=== PATIENT | male | born 1990 | race Caucasian/White ===

== ENCOUNTER 2018-06-10 08:05 | Emergency (ER) | payer MEDICAID, SELFPAY ==
[2018-06-10 08:09] VITALS: BP 150/97; PULSE 68; RESP 18; TEMP 36.7; O2SAT 95
--- NOTE | 2018-06-10 08:25 | W.ED.GENAD ---
Discharge Plan Disposition Patient Disposition: HOME Condition: Good Discharge Details Chief Complaint: Sorethroat Clinical Impression: Pharyngitis Primary Care Provider: ROSALIA PAINTING ED Provider: Sage Thomas Home Meds and New Rx's Prescriptions: New amoxicillin 500 mg capsule 500 mg PO TID Qty: 30 RF: 0 Continue methadone 10 MG/ML concentrate 100 mg PO DAILY RF: 0 Discharge Instructions Instructions: Pharyngitis (ED) Additional Instructions: if symptoms continue next week see your primary care provider if you have inability to swallow liquids or difficulty breathing return to the emergency department Discharge Data Discharge Physician: Sage Thomas Medical Decision Making Pt has had a sore throat for about a week, no fevers or other systemic symptoms. Denies dyspnea, difficulty swallowing liquids or stridor. Swallowing normally on exam with midline uvula, no pain over hyoid or restricted neck movemements, no findings to suggest rpa, radio division captain, epiglotitis at this time. Has mild erythema of psoterior pharynx. Will cover for bacterial pharyngitis and given return precautions Differential Diagnosis viral vs bacterial pharyngitis HPI General Mode of arrival: ambulatory. Date/Time Provider Initiated Documentation: 06/10/18 08:20. Limitations to Documentation: no limitations. Information obtained by: patient. History of Present Illness 28 year old M presents to the emergency department with the chief complaint of throat pain, described as moderate, with intensity rated at 5. Quality is described as aching, Patient reports no radiation. Patient started experiencing this week(s) (1) and it has been constant. No relieving factors improve symptom(s), No exacerbating factors reported . Patient notes no other symptoms.. Patient did receive the following treatments prior to arrival, NSAID Related Data Home Medications Medication Instructions Recorded Confirmed methadone 100 mg PO DAILY 02/12/16 06/10/18 amoxicillin 500 mg PO TID #30 cap 06/10/18 Previous Rx's Medication Instructions Recorded amoxicillin 500 mg PO TID #30 cap 06/10/18 Allergies Allergy/AdvReac Type Severity Reaction Status Date / Time venom-honey bee Allergy Unverified 06/10/18 08:16 [bee venom (honey bee)] amoxicillin AdvReac Intermediate Nausea Unverified 06/10/18 08:16 sulfamethoxazole AdvReac Unverified 06/10/18 08:16 [From Bactrim] trimethoprim [From Bactrim] AdvReac Unverified 06/10/18 08:16 General Stated Complaint: Sorethroat CHANTAL: 4 Review of Systems Review of Systems All systems reviewed & are unremarkable except as noted in HPI and below Constitutional Denies chills, Denies fever(s) and Denies weakness Eyes Denies loss of vision Cardiovascular Denies chest pain and Denies dyspnea Respiratory Denies dyspnea Gastrointestinal Denies abdominal pain Genitourinary Denies dysuria Musculoskeletal Denies joint swelling Integumentary/Breasts Denies rash Neurologic Denies loss of vision and Denies weakness Psychiatric Denies depression Endocrine Denies cold intolerance and Denies heat intolerance PFSH Social History Smoking/Tobacco Use Status: Current every day Exam Const General: no acute distress Orientation: alert HENMT Head: normal to inspection Ears: external ears normal General nose exam: external nose normal Mouth: moist mucous membranes Eyes General: appearance normal, both eyes and all related structures Neck Neck: normal visual inspection Resp Effort & Inspection: normal respiratory effort and able to speak in complete sentences Cardio Rate: regular rate Skin General skin exam: no rashes or lesions noted Neuro General: alert and oriented x3 Extrem General: normal to inspection Psych Mental Status: mental status grossly normal Course Vital Signs Temperature 36.7 C 06/10/18 08:09 Pulse 68 06/10/18 08:09 Respiratory Rate 18 06/10/18 08:09 Blood Pressure 150/97 H 06/10/18 08:09 Pulse Oximetry 95 06/10/18 08:09 Temperature 36.7 C 06/10/18 08:09 Temperature Source Skin 06/10/18 08:09 Pulse 68 06/10/18 08:09 Respiratory Rate 18 06/10/18 08:09 Respiratory Effort 06/10/18 08:14 Blood Pressure 150/97 H 06/10/18 08:09 Blood Pressure Position Sitting 06/10/18 08:09 Pulse Oximetry 95 06/10/18 08:09 Oxygen Delivery Method Room Air 06/10/18 08:09 Oxygen Flow Rate 0 06/10/18 08:09 Pain Level 8 06/10/18 08:09 Comment 06/10/18 08:09
--- NOTE | 2018-06-10 08:28 | ED.GENADUL_ITS ---
Discharge Plan Disposition Patient Disposition: HOME Condition: Good Discharge Details Chief Complaint: Sorethroat Clinical Impression: Pharyngitis Primary Care Provider: ROSALIA PAINTING ED Provider: Sage Thomas Home Meds and New Rx's Prescriptions: New amoxicillin 500 mg capsule 500 mg PO TID Qty: 30 RF: 0 Continue methadone 10 MG/ML concentrate 100 mg PO DAILY RF: 0 Discharge Instructions Instructions: Pharyngitis (ED) Additional Instructions: if symptoms continue next week see your primary care provider if you have inability to swallow liquids or difficulty breathing return to the emergency department Discharge Data Discharge Physician: Sage Thomas Medical Decision Making Pt has had a sore throat for about a week, no fevers or other systemic symptoms. Denies dyspnea, difficulty swallowing liquids or stridor. Swallowing normally on exam with midline uvula, no pain over hyoid or restricted neck movemements, no findings to suggest rpa, radio division captain, epiglotitis at this time. Has mild erythema of psoterior pharynx. Will cover for bacterial pharyngitis and given return precautions Differential Diagnosis viral vs bacterial pharyngitis HPI General Mode of arrival: ambulatory . Date/Time Provider Initiated Documentation: 06/10/18 08:20 . Limitations to Documentation: no limitations . Information obtained by: patient . History of Present Illness 28 year old M presents to the emergency department with the chief complaint of throat pain, described as moderate, with intensity rated at 5. Quality is described as aching, Patient reports no radiation. Patient started experiencing this week(s) (1) and it has been constant. No relieving factors improve symptom(s), No exacerbating factors reported . Patient notes no other symptoms.. Patient did receive the following treatments prior to arrival, NSAID Related Data Home Medications Medication Instructions Recorded Confirmed methadone 100 mg PO DAILY 02/12/16 06/10/18 amoxicillin 500 mg PO TID #30 cap 06/10/18 Previous Rx's Medication Instructions Recorded amoxicillin 500 mg PO TID #30 cap 06/10/18 Allergies Allergy/AdvReac Type Severity Reaction Status Date / Time venom-honey bee Allergy Unverified 06/10/18 08:16 [bee venom (honey bee)] amoxicillin AdvReac Intermediate Nausea Unverified 06/10/18 08:16 sulfamethoxazole AdvReac Unverified 06/10/18 08:16 [From Bactrim] trimethoprim [From Bactrim] AdvReac Unverified 06/10/18 08:16 General Stated Complaint: Sorethroat CHANTAL: 4 Review of Systems Review of Systems All systems reviewed & are unremarkable except as noted in HPI and below Constitutional Denies chills, Denies fever(s) and Denies weakness Eyes Denies loss of vision Cardiovascular Denies chest pain and Denies dyspnea Respiratory Denies dyspnea Gastrointestinal Denies abdominal pain Genitourinary Denies dysuria Musculoskeletal Denies joint swelling Integumentary/Breasts Denies rash Neurologic Denies loss of vision and Denies weakness Psychiatric Denies depression Endocrine Denies cold intolerance and Denies heat intolerance PFSH Social History Smoking/Tobacco Use Status: Current every day Exam Const General: no acute distress Orientation: alert HENMT Head: normal to inspection Ears: external ears normal General nose exam: external nose normal Mouth: moist mucous membranes Eyes General: appearance normal, both eyes and all related structures Neck Neck: normal visual inspection Resp Effort & Inspection: normal respiratory effort and able to speak in complete sentences Cardio Rate: regular rate Skin General skin exam: no rashes or lesions noted Neuro General: alert and oriented x3 Extrem General: normal to inspection Psych Mental Status: mental status grossly normal Course Vital Signs Temperature 36.7 C 06/10/18 08:09 Pulse 68 06/10/18 08:09 Respiratory Rate 18 06/10/18 08:09 Blood Pressure 150/97 H 06/10/18 08:09 Pulse Oximetry 95 06/10/18 08:09 Temperature 36.7 C 06/10/18 08:09 Temperature Source Skin 06/10/18 08:09 Pulse 68 06/10/18 08:09 Respiratory Rate 18 06/10/18 08:09 Respiratory Effort 06/10/18 08:14 Blood Pressure 150/97 H 06/10/18 08:09 Blood Pressure Position Sitting 06/10/18 08:09 Pulse Oximetry 95 06/10/18 08:09 Oxygen Delivery Method Room Air 06/10/18 08:09 Oxygen Flow Rate 0 06/10/18 08:09 Pain Level 8 06/10/18 08:09 Comment 06/10/18 08:09
== END 2018-06-10 08:41 | disposition home or self-care (01) ==
PROVIDERS: Emergency Provider Emergency Medicine; PCP Family Medicine
DX: J02.9 Acute pharyngitis, unspecified (principal); F17.210 Nicotine dependence, cigarettes, uncomplicated
CPT/HCPCS: 99283

== ENCOUNTER 2024-07-19 03:28 | Emergency (ER) | payer MEDICAID, SELFPAY ==
[2024-07-19 03:33] VITALS: BP 146/88; PULSE 127; RESP 16; TEMP 37.1; O2SAT 98
[2024-07-19] MEDS: Lidocaine 5% Patch 1 PATCH TP (03:57)
[2024-07-19] MEDS: Clindamycin 150 MG CAP, 12 CAPS/BTL 1800 MG (03:57)
--- NOTE | 2024-07-19 03:59 | ED.GENADUL_ITS ---
Discharge Plan Disposition Patient Disposition: Home Condition: Good Discharge Details Clinical Impression: Cellulitis of finger of left hand, Rib pain on left side Primary Care Provider: Jeny Seaman ED Provider: Dawson Crawley Home Meds and New Rx's Prescriptions: New clindamycin HCl 150 mg capsule 450 mg PO Q6H 9 Days Qty: 108 0RF lidocaine [Lidoderm] 5 % adhesive patch,medicated 1 patch Topical Q24H Qty: 15 0RF No Action methadone 10 MG/ML concentrate 100 mg PO DAILY Discharge Instructions Instructions: Cellulitis (Skin Infection), Adult ED Additional Instructions: At this time you do have a bacterial infection in your left arm. Please take the antibiotic as prescribed. While you have been given a powerful antibiotic, there is a chance that the infection could worsen. If you noticed increased of your red streaking, if you develop a fever, if you have worsening pain, please return immediately for reassessment. Thankfully the ultrasound does not show any evidence of abnormality for your lungs or your heart, and it is likely a bruised or very mildly rebroken rib that is causing the pain. Please take the Lidoderm patch as prescribed. If your insurance does not cover it or it is too expensive you can buy [id number] Lidoderm patches which are just 1% point lower, but still offer significant pain management. If you notice any worsening of your symptoms, or any new symptoms such as vomiting, diarrhea, fever, chills, shortness of breath, chest pain, numbness, weakness, or fainting , please return immediately to the emergency department for reevaluation. Please follow up with your primary care provider as soon as possible for reassessment and reevaluation. As always, it was a pleasure participating in your medical care today. Referrals: Jeny Seaman [Primary Care Provider] - [facility] General Date/Time Provider Initiated Documentation: 07/19/24 03:44 . HPI Narrative: 34-year-old male with a past medical history of IV drug use presents today for evaluation of left arm swelling. Patient states he recently got out of residential and then he relapsed about 48 hours ago. He injected into his left hand then over the last 24 to 36 hours is noted swelling in the left hand and streaking up the left forearm. He denies fever. He admits to mild achiness but no severe pain. No large amount of discharge or fluid. He is right-hand dominant. He does admit to a few very small sores which are weeping whitish fluid. Additionally he states that he has also had some mild left-sided rib pain. He broke his ribs a few weeks ago, the in the last 24 to 48 hours he slipped and fell and hit left ribs on a tree. He has had some mild achiness there. Worse when he takes a deep breath or palpates the area. He has taken occasional Tylenol Motrin to help with the pain. No other complaints at this time. No cough, no fever, no headache or neck pain, no hemoptysis. Related Data Home Medications ?Medication ?Instructions ?Recorded ?Confirmed methadone 10 mg/mL oral concentrate 100 mg PO DAILY 02/12/16 07/19/24 clindamycin HCl 150 mg capsule 450 mg (3 x 150 mg) PO Q6H 9 days 07/19/24 #108 caps lidocaine 5 % topical patch 1 patch topical Q24H #15 ea 07/19/24 (Lidoderm) Previous Rx's ?Medication ?Instructions ?Recorded clindamycin HCl 150 mg capsule 450 mg (3 x 150 mg) PO Q6H 9 days 07/19/24 #108 caps lidocaine 5 % topical patch 1 patch topical Q24H #15 ea 07/19/24 (Lidoderm) Allergies Allergy/AdvReac Type Severity Reaction Status Date / Time venom-honey bee (bee venom Allergy Unknown Verified 07/19/24 03:48 (honey bee)) amoxicillin AdvReac Intermediate Nausea Verified 07/19/24 03:48 sulfamethoxazole (From AdvReac Unknown Verified 07/19/24 03:48 Bactrim) trimethoprim (From Bactrim) AdvReac Unknown Verified 07/19/24 03:48 General Stated Complaint: Cellulitis CHANTAL: 3 Review of Systems All systems reviewed & are unremarkable except as noted in HPI and below Exam Narrative Exam Narrative: 1.Const: Well-nourished, Well-developed, appearing stated age 2.Eyes: PERRL, no conjunctival injection, and symmetrical lids. 3.ENT: Atraumatic external nose and ears. Moist MM. Neck: Symmetric, trachea midline, No thyromegaly. 4.CVS: +S1/S2, Peripheral pulses 2+ and equal in all extremities. Brisk capillary refill in all extremities. 5.RESP: Unlabored respiratory effort. Clear to auscultation bilaterally. No wheezes rales or rhonchi 6.GI: Soft, Nontender/Nondistended, No hepatosplenomegaly. No guarding or rebound. 7.MSK: Normocephalic/Atraumatic, Extremities w/o deformity or ttp No cyanosis or clubbing, Normal movement of all extremities. Mild tenderness over the left lateral ribs. No abdominal or flank tenderness. 8.Skin: Erythema and edema in the left hand with streaking traveling up the forearm. No fluctuance to suggest abscess. No active drainage that I can appreciate at this time. No subcutaneous crepitus. 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 Sensation grossly intact, no focal neurol ogic deficits. 10.Psych: (AAO) x3. Appropriate mood and affect Course Vital Signs Vital signs: Vital Signs Temperature 37.1 C 07/19/24 03:33 Pulse 127 H 07/19/24 03:33 Respiratory Rate 16 07/19/24 03:33 Blood Pressure 146/88 H 07/19/24 03:33 Pulse Oximetry 98 07/19/24 03:33 Temperature 37.1 C 07/19/24 03:33 Temperature Source Temporal Artery Scan 07/19/24 03:33 Pulse 127 H 07/19/24 03:33 Respiratory Rate 16 07/19/24 03:33 Respiratory Effort Normal 07/19/24 03:51 Blood Pressure 146/88 H 07/19/24 03:33 Blood Pressure Position Sitting 07/19/24 03:33 Pulse Oximetry 98 07/19/24 03:33 Oxygen Delivery Method Room Air 07/19/24 03:33 Oxygen Flow Rate 0 07/19/24 03:33 Pain Level 6 07/19/24 03:33 Medical Decision Making 34-year-old male with a past medical history of IV drug use presents today for evaluation of left arm swelling. Patient states he recently got out of residential and then he relapsed about 48 hours ago. He injected into his left hand then over the last 24 to 36 hours is noted swelling in the left hand and streaking up the left forearm. He denies fever. He admits to mild achiness but no severe pain. No large amount of discharge or fluid. He is right-hand dominant. He does admit to a few very small sores which are weeping whitish fluid. Additionally he states that he has also had some mild left-sided rib pain. He broke his ribs a few weeks ago, the in the last 24 to 48 hours he slipped and fell and hit left ribs on a tree. He has had some mild achiness there. Worse when he takes a deep breath or palpates the area. He has taken occasional Tylenol Motrin to help with the pain. No other complaints at this time. No cough, no fever, no headache or neck pain, no hemoptysis. Exam demonstrates well-appearing male, mildly tachycardic but no fever. He has redness and mild edema traveling up the left arm with no crepitus to suggest necrotizing fasciitis. No cardiac murmur to suggest endocarditis. Chest pain is superficial and reproducible, no suspicion for pneumonia. No cough to suspect pneumonia. No headache or neck pain to suggest meningitis. Limited bedside ultrasound was performed, limited bedside cardiac echo shows no evidence of interventricular mass or large vegetation. Lung sliding is excellent. No evidence of pneumothorax. Unfortunately for some reason tonight the system was not allowing for upload of the patient or saving of the images. With the evidence of the patient's cellulitis we will give a prescription for clindamycin. We will give a dose here, a dose to go, and prescription for home. Will give a Lidoderm patch for his ribs. At this point there is not an indication for IV antibiotics however we had a long discussion with the patient that if his symptoms worsen and do not improve he will need to come back for IV antibiotics. Patient otherwise stable at this time. No hypotension to suggest shock. No fever to suggest systemic bacteremia. Patient will be discharged home. I have extensively reviewed the treatment plan and discharge instructions with the patient. I have addressed all patient concerns at this time. The patient was made aware of what symptoms to monitor for that would warrant a return to the emergency department. Discussed the plan with the patient, they demonstrate verbal understanding and agreement with our assessment and plan at this time. The documentation in this chart was dictated using [employer]yy game platform dictation software. Please excuse any dictation errors. Quality:SDOH Health Related Social Needs: No Data to Display PFSH All Active Problems Rib pain on left side (Acute) Cellulitis of finger of left hand (Acute) Social History Smoking/Tobacco Use Status: Current every day Smoking risk assessment performed?: Yes Alcohol Intake: former Drug use: Occasionally Substance use type: crack/cocaine Current gender identity: male Do you feel safe in your relationship?: Yes Additional Social history: none provided
== END 2024-07-19 04:08 | disposition home or self-care (01) ==
LOC: ER 04:26
PROVIDERS: Emergency Provider Student in an Organized Health Care Education/Training Program; PCP Family Medicine
DX: L03.012 Cellulitis of left finger (principal); R07.81 Pleurodynia; F19.10 Other psychoactive substance abuse, uncomplicated; F17.200 Nicotine dependence, unspecified, uncomplicated
CPT/HCPCS: 96374; 99284